=== PATIENT | female | born 1975 | race African-American/Black ===

== ENCOUNTER 2022-03-01 22:00 | Emergency (ER) | payer OTHER ==
[~2022-03-01] VITALS: Ht 172.7 cm; Wt 70.0 kg
[2022-03-01 23:16] LABS: BASOPHILS % 0.1 % (0.0-2.0); EOSINOPHILS % 0.2 % (0.0-5.0); HEMATOCRIT. 39.5 % (36.0-48.0); HEMOGLOBIN. 12.9 g/dL (12.0-16.0); LYMPHOCYTES % 9.5 % (20.0-50.0); MEAN CORPUSCULAR HEMOGLOBIN 33.5 pg (28.0-32.0); MEAN CORPUSCULAR VOLUME 102.9 fL (81.0-99.0); MEAN PLATELET VOLUME 8.3 fl (7.4-10.4); MONOCYTES % 5.6 % (2.0-8.0); NEUTROPHILS % 84.6 % (40.0-76.0); PLATELET 252 x1000/uL (130-400); RED BLOOD CELL COUNT 3.84 mill/uL (4.2-5.4); RED CELL DISTRIBUTION WIDTH 13.3 % (11.6-14.6)
[2022-03-01 23:18] LABS: CHLORIDE 108 mEq/L (98-107)
[2022-03-01 23:53] LABS: HCG SCREEN NEGATIVE
[2022-03-02 00:44] VITALS: BP 112/86
[2022-03-02] MEDS ORDERED: IBUPROFEN 400MG TABLET PO ONE (00:45)
== END 2022-03-02 00:54 ==
LOC: ER 22:00
DX: R07.89 Other chest pain (principal)
CPT/HCPCS: 36415; 71045; 80053; 83880; 84484; 84703; 85025; 93005; 99285